=== PATIENT | male | born 1930 | race Two or more races ===

== ENCOUNTER 2021-09-11 16:14 | Emergency (ER) | payer MEDICARE, MEDICAID ==
[~2021-09-11] VITALS: Ht 165.1 cm; Wt 61.7 kg
[2021-09-11 18:59] VITALS: BP 130/65
== END 2021-09-11 19:14 | disposition home or self-care (01) ==
LOC: ER 16:14
DX: S00.91XA Abrasion of unspecified part of head, initial encounter (principal); W01.0XXA Fall on same level from slipping, tripping and stumbling without subsequent striking against object, initial encounter; Y93.89 Activity, other specified; Y92.89 Other specified places as the place of occurrence of the external cause; Y99.8 Other external cause status
CPT/HCPCS: 70450